=== PATIENT | male | born 1990 | race Two or more races ===

== ENCOUNTER 2025-08-19 07:20 | Emergency (ER) | payer OTHER ==
[~2025-08-19] VITALS: Ht 154.9 cm; Wt 89.8 kg
[2025-08-19] MEDS ORDERED: DEPO-TESTO200 MG/1 M {1, null} (08:33)
[2025-08-19] MEDS ORDERED: SODIUM CHLORIDE FOR INHALATION 1 VIAL.NEB IH STA (08:41)
[2025-08-19] MEDS ORDERED: DEXAMETHASONE 4 MG TABLET PO STA (08:42)
[2025-08-19 09:27] LABS: BASO % 0.6 % (0.1-1.2); EOS # 0.22 (0.04-0.54); EOS % 2.7 % (0.7-7.0); LYMPH # 1.07 (1.18-3.74); LYMPH % 13.0 % (19.3-53.1); MEAN PLATELET VOLUME 11.80 fl (9.4-12.4); MONO # 0.59 (0.24-0.82); MONO % 7.2 % (4.7-12.5); NEUT # 6.25 (1.56-6.13); NEUT % 76.1 % (34.0-71.1); RED CELL DISTRIBUTION WIDTH 11.9 % (11.6-14.4)
[2025-08-19] MEDS ORDERED: SODIUM CHLORIDE FOR INHALATION 1 VIAL.NEB IH ONE (09:56)
[2025-08-19] MEDS ORDERED: ALBUTEROL SULFATE 3 ML/2.5 MG AMPUL.NEB IH ONE (09:57)
[2025-08-19 10:00] LABS: ALT/SGPT 71.0 U/L (12-78); AST/SGOT 32.0 U/L (15-37); BILIRUBIN TOTAL 0.57 mg/dL (0.3-1.2); BUN CREA RATIO 11.0 (7.0-25.0); CREATININE SERUM 0.73 mg/dL (0.70-1.30); GFR 123.74; GLOBULINA 4.0 G/DL (2.4-3.5); GLUCOSE FASTING 98.0 mg/dL (65-100); OSMOLALITY SERUM 278.0 MOSM/KG (275-295)
[2025-08-19] MEDS ORDERED: CEFTRIAXONE SODIUM 1,000 MG VIAL IM STA (10:28)
[2025-08-19 10:45] LABS: COVID-19 AG NEGATIVE (NEGATIVE)
[2025-08-19] MEDS ORDERED: LIDOCAINE HCL 1% 10ML VIAL ONE (10:56)
[2025-08-19] MEDS ORDERED: CEFTRIAXONE SODIUM 1,000 MG VIAL ONE (10:56)
[2025-08-19] MEDS ORDERED: ZITHROMAX500 MG PO (11:41)
[2025-08-19] MEDS ORDERED: NEBUSAL4 ML IH (11:41)
== END 2025-08-19 12:07 | disposition home or self-care (01) ==
LOC: ER 07:20
PROVIDERS: Physician Assistant Medical
DX: J06.9 Acute upper respiratory infection, unspecified (principal); J03.90 Acute tonsillitis, unspecified; Z20.822 Contact with and (suspected) exposure to COVID-19; I10 Essential (primary) hypertension